=== PATIENT | female | born 1960 | race Two or more races ===

== ENCOUNTER 2019-11-29 08:12 | Outpatient (CLI) | payer OTHER | END 2019-11-29 13:34 | disposition home or self-care (01) | LOC: LAB 08:12 | DX: D64.89 Other specified anemias (principal); E11.9 Type 2 diabetes mellitus without complications; E78.2 Mixed hyperlipidemia; I11.9 Hypertensive heart disease without heart failure; N39.0 Urinary tract infection, site not specified; M81.0 Age-related osteoporosis without current pathological fracture; R94.5 Abnormal results of liver function studies; M32.10 Systemic lupus erythematosus, organ or system involvement unspecified; M06.4 Inflammatory polyarthropathy ==